=== PATIENT | male | born 1990 | race Caucasian/White ===

== ENCOUNTER → 2018-06-01 | Outpatient (CLI) | payer BC, OTHER ==
[~2018-06-01] MED LIST: CETI10CA PO; GADOBUTROL 7.5 MMOL/7.5 ML (GADAVIST) VIAL IV ONE; IOHEXOL 240 MGI/ML 20 ML (OMNIPAQUE) VIAL IV ONE; LIDOCAINE 1% INJ 20 ML 20 ML VIAL ONE
--- NOTE | 2018-06-01 14:31 | Diagnostic Imaging Report ---
INDICATION: Right shoulder pain. Patient presents for right shoulder injection for MRI. PROCEDURE: Patient was brought to the procedure room and placed on the table in the supine position. The skin of the right shoulder was prepped and draped in usual sterile fashion. Small amount of 1% lidocaine was utilized for local anesthesia. A 21-gauge needle was advanced into the right shoulder at the rotator interval. 15 mL solution of iodinated contrast, normal saline and gadolinium was injected under fluoroscopic observation. The needle was withdrawn and hemostasis was obtained. Patient tolerated the procedure well and was sent to MRI in satisfactory condition. Total of 21 seconds of fluoroscopy was utilized. IMPRESSION: Successful right shoulder injection of gadolinium contrast solution, using fluoroscopy. Dictated by: Dictated on workstation # [id number]
--- NOTE | 2018-06-01 15:00 | Diagnostic Imaging Report ---
PATIENT HISTORY: Right shoulder pain. Injury lifting weights in February 2018. TECHNIQUE: Multiplanar multisequence MRI examination of the right shoulder performed following intraarticular injection of a gadolinium based contrast mixture. COMPARISON: None. FINDINGS: No acute fracture is seen in the right shoulder. There is a defect in the superior posterior right humeral head consistent with a Hill-Sachs deformity. Alignment appears normal. Joint spaces are preserved. The joint is mildly distended with contrast. The supraspinatus tendon is intact. There is low-grade partial thickness tearing of the infraspinatus tendon at the footplate articular surface. The sub-scapularis tendon appears intact. The teres minor tendon is intact. The long head of the biceps tendon appears normal in course and signal. Irregularity at the anterior superior labrum is thought to be due to anatomic variant. There is mild irregularity at the anterior inferior glenoid labrum (image 18 series 3). No para-labral cyst is seen. The acromion has a curved undersurface without downsloping or hooking. There are mild degenerative changes at the acromioclavicular joint, greater than expected for age. The coracoclavicular and coracoacromial ligaments are intact. There is contrast in the soft tissues anteriorly from recent injection. Contrast in the bursa is likely secondary to injection as well. IMPRESSION: 1. Small Hill-Sachs deformity with low-grade partial thickness articular surface tear of the infraspinatus tendon. 2. No high-grade partial-thickness or full-thickness rotator cuff tear seen. 3. Mild irregularity at the anterior inferior glenoid labrum without discrete tear seen. 4. Mild degenerative changes in the acromioclavicular joint, greater than expected for age. Dictated by: Dictated on workstation # [id number]
== END ==
LOC: RAD 12:28
PROVIDERS: ATTEND Orthopaedic Surgery
DX: S46.011A Strain of muscle(s) and tendon(s) of the rotator cuff of right shoulder, initial encounter (principal); M19.011 Primary osteoarthritis, right shoulder; M21.821 Other specified acquired deformities of right upper arm
CPT/HCPCS: 23350; 73040; 73222

== ENCOUNTER 2018-10-27 10:30 | Outpatient (RCR) | payer BC ==
[~2018-10-27 10:30] MED LIST changes: -GADOBUTROL 7.5 MMOL/7.5 ML (GADAVIST) VIAL IV ONE; -IOHEXOL 240 MGI/ML 20 ML (OMNIPAQUE) VIAL IV ONE; -LIDOCAINE 1% INJ 20 ML 20 ML VIAL ONE
== END 2018-10-27 11:02 | disposition home or self-care (01) ==
PROVIDERS: ATTEND Orthopaedic Surgery
DX: M25.511 Pain in right shoulder (principal); Z98.890 Other specified postprocedural states

== ENCOUNTER → 2021-06-12 | Outpatient (REF) ==
--- NOTE | 2021-06-12 11:14 | Diagnostic Imaging Report ---
EXAMINATION: Cervical spine 2 or 3 views HISTORY: CERVICAL PAIN COMPARISON: None available. FINDINGS: No acute fracture, dislocation, or destructive osseous process is seen. The odontoid process is intact. There is straightening of the normal cervical lordosis which may be secondary to positioning or muscle spasm. Prevertebral soft tissues are normal. IMPRESSION: No acute osseous abnormality of the cervical spine. Dictated by: Dictated on workstation # [id number]
== END ==
LOC: OCC 10:47
PROVIDERS: ATTEND Family Medicine
DX: M54.2 Cervicalgia (principal)
CPT/HCPCS: 72040